=== PATIENT | female | born 1960 | race Caucasian/White ===

== ENCOUNTER 2020-08-07 07:23 | Emergency (ER) | payer BC, OTHER ==
[~2020-08-07] VITALS: Ht 165.1 cm; Wt 79.0 kg
[~2020-08-07 07:23] MED LIST: ASPI-482 PO; OMEP20TA8 PO
[2020-08-07] MEDS ORDERED: IV NORMAL SALINE 1,000ML 1,000 ML IV ONE (07:30)
[2020-08-07] MEDS ORDERED: MECLIZINE 12.5 MG TABLET. PO ONE (07:30)
[2020-08-07] MEDS ORDERED: DEXAMETHASONE SOD PHOS 10 MG/ML VIAL. IV ONE (07:35)
--- NOTE | 2020-08-07 07:43 | EKG ---
[address] [address] Test Date: 2020-08-07 Test Time: 07:37:01 Pat Name: REY MILLER Department: Room: Gender: F Client Relationship Manager: AGUILAR : 1960 Requested By: MOHIT SULLIVAN Order Number: [id number] Reading MD: Measurements Intervals [place] Rate: 84 P: 0 RI: 154 QRS: 41 QRSD: 98 T: 26 QT: 384 QTc: 457 Interpretive Statements SINUS RHYTHM NO SPECIFIC ECG ABNORMALITIES RI6.02 No previous ECG available for comparison
--- NOTE | 2020-08-07 07:46 | PHYS DOC ---
Past History Past Medical History: Diabetes Smoking: Quit Greater Than 1 Year Alcohol Use: Occasionally Drug Use: None General Adult EDM: Chief Complaint: RINGING IN EARS HPI: HPI: Patient is a 60 y/o female with a history of vertigo and diabetes who presents to the ED per EMS with dizziness and feeling warm since around 0630 today. Associated nausea, tingling in her fingers, and worsening ringing in her ears. Pt states that this feels different than her normal vertigo episodes and she has chronic tinnitus but is worse today. Denies taking any medication for symptoms. Symptoms are exacerbated with eye movement or positional changes. Denies any SOB, chest pain, recent sick contacts, or any other pain. Review of Systems: Review of Systems: Constitutional: Denies fever or chills Eyes: Denies redness or eye pain HENT: Reports dizziness with eye movement; Denies nasal congestion or sore throat Respiratory: Denies cough or shortness of breath Cardiovascular: Denies chest pain or palpitations GI: Reports nausea; Denies abdominal pain or vomiting : Denies dysuria or hematuria Musculoskeletal: Denies back pain or joint pain Integument: Denies rash or skin lesions Neurologic: Reports dizziness, tingling in fingers; Denies headache, focal weakness or sensory changes Complete systems were reviewed and found to be within normal limits, except as documented in this note. Current Medications: Current Meds: Current Medications Medications (Trade) Dose Ordered Sig/Dennis Start Time Stop Time Status Last Admin Dose Admin Dexamethasone Sodium Phosphate (Decadron) 10 mg 1X ONCE 08/07/20 07:35 08/07/20 07:36 Meclizine HCl (Antivert) 25 mg 1X ONCE 08/07/20 07:30 08/07/20 07:31 DC Sodium Chloride 1,000 ml @ 1,000 mls/hr 1X ONCE 08/07/20 07:30 08/07/20 08:29 Allergies: Allergies: Allergies Coded Allergies Type Severity Reaction Last Updated Verified No Known Drug Allergies 12/21/13 No Physical Exam: PE: Constitutional: Well developed, well nourished, no acute distress, non-toxic appearance HENT: Normocephalic, atraumatic Eyes: PERRL, EOMI, conjunctiva normal, no discharge, no nystagmus, Pt became dizzy on eye exam Neck: Normal range of motion, no tenderness, supple Lungs & Thorax: No respiratory distress, equal chest rise and fall Abdomen: Soft, no tenderness Skin: Warm, dry, no erythema, no rash Back: No tenderness, no CVA tenderness Extremities: No tenderness, ROM intact, no edema Neurologic: Alert and oriented X 3, normal motor function, normal sensory function, no focal deficits noted, CN II-XII intact, Normal [id number] test Psychologic: Affect normal, judgment normal EKG: EKG: EKG @ 0730, Sinus rhythm at 84 BPM, no ST elevation, IN 154 ms, QRS 98ms, QTc 457 ms Radiology/Procedures: Radiology/Procedures: PROCEDURE: CT HEAD WO CONTRAST CT HEAD WO CONTRAST Date: 08/07/2020 7:26 AM Clinical Indication: dizziness / Spl. Instructions: / History: Comparison: None. Technique: 5 mm axial tomographic images were obtained of the head without contrast. These were viewed on brain and bone windows. One or more of the following dose reduction techniques were utilized: Automated exposure control (AEC), Adjustment of mA and/or kV according to patient size, Use of iterative reconstruction technique such as ASiR, CT scan done according to ALARA and image gently/image wisely Findings: The brain parenchyma is normal in attenuation. No intra- or extra-axial mass or fluid collection. No acute hemorrhage. The ventricles are normal in size, shape, and morphology. The newell-white matter junction is normal. The subarachnoid cisterns are patent. The visualized paranasal sinuses are normal. The visualized portions of the orbits and globes are normal. The mastoid air cells are clear. The database programmer topogram shows no lytic lesion or fracture. Impression: No acute intracranial process. Electronically signed by: Jake Lott MD (08/07/2020 8:08 AM) [id number] Course & Med Decision Making: Course & Med Decision Making Pertinent Labs and Imaging studies reviewed. (See chart for details) Pt is a 60 y/o female who presents to the ED with worsening dizziness, tingling in fingers, and nausea. NIH score 0. CT of head negative. Pt felt improvement in the ED after medications. Labs and imaging normal. Patient stable for discharge with outpatient follow-up with PCP. Discussed findings and plan with patient, who acknowledges understanding and agreement. Ciaran Disclaimer: Ciaran Disclaimer: This electronic medical record was generated, in whole or in part, using a voice recognition dictation system. Departure Departure: Impression: Primary Impression: Vertigo Additional Impression: Tinnitus Qualified Codes: H93.11 - Tinnitus, right ear Disposition: 01 DC HOME SELF CARE/HOMELESS Condition: IMPROVED Referrals: BRYCE GUNN MD (PCP) Patient Instructions: Tinnitus, Vertigo, [id number] Additional Instructions: Follow closely with your doctor and/or ENT. Dr. Marko Smalls (ENT) Address: [address] [place] [address] [address], [place] [address] Scripts Meclizine Hcl (MECLIZINE HCL) 25 Mg Tablet 1 TAB PO TID PRN for DIZZINESS, #20 TAB Prov: MOHIT SULLIVAN DO 08/07/20 Prednisone (PREDNISONE) 20 Mg Tablet 2 TAB PO DAILY for Tinnitus, #8 TAB Start this prescriptions tomorrow, Tuesday08/08/2020 Prov: MOHIT SULLIVAN DO 08/07/20 NIHSS - ED NIH Stroke Scale: NIH Stroke Scale Response (Comments) Value Level of Consciousness: 0 Alert/Responsive 0 LOC Questions: 0 Answers both correctly 0 LOC Commands: 0 Performs both tasks 0 Best Gaze: 0 Normal 0 Visual: 0 No visual loss 0 Facial Palsy: 0 Normal, symmetrical 0 Motor - Left Arm 0 No drift 0 Motor - Right Arm 0 No drift 0 Motor - Left Leg 0 No drift 0 Motor: Right Leg 0 No drift 0 Limb Ataxia: 0 Absent 0 Sensory: 0 No loss 0 Best Language: 0 Normal 0 Dysathria: 0 Normal 0 Extinction and Inattention: 0 Normal 0 Total 0 MOHIT SULLIVAN DO Aug 07, 2020 07:46
[2020-08-07 07:55] LABS: BASO % 1 % (0-3); EOS # 0.2 x10^3/uL (0.0-0.7); EOS % 2 % (0-3); HEMATOCRIT 41.2 % (36.0-47.0); LYMPH # 3.3 x10^3/uL (1.0-4.8); LYMPH % 43 % (24-48); MEAN CORPUSCULAR HEMOGLOBIN 26 pg (25-35); MEAN CORPUSCULAR HGB CONC 32 g/dL (31-37); MEAN CORPUSCULAR VOLUME 81 fL (79-100); MONO # 0.5 x10^3/uL (0.0-1.1); MONO % 6 % (0-9); NEUT # 3.7 x10^3uL (1.8-7.7); NEUT % 48 % (31-73); PLATELET COUNT 321 x10^3/uL (140-400); RED BLOOD COUNT 5.09 x10^6/uL (3.50-5.40); RED CELL DISTRIBUTION WIDTH 14.8 % (11.5-14.5); WHITE BLOOD COUNT 7.8 x10^3/uL (4.0-11.0)
[2020-08-07 08:04] LABS: ANION GAP 13 (6-14); BLOOD UREA NITROGEN 13 mg/dL (7-20); BUN/CREATININE RATIO 16 (6-20); CALCIUM 8.9 mg/dL (8.5-10.1); CARBON DIOXIDE 23 mmol/L (21-32); CHLORIDE 104 mmol/L (98-107); CREATININE 0.8 mg/dL (0.6-1.0); GFR 73.7; GLUCOSE 142 mg/dL (70-99); POTASSIUM 3.7 mmol/L (3.5-5.1); SODIUM 140 mmol/L (136-145)
--- NOTE | 2020-08-07 08:11 | RAD ---
CT HEAD WO CONTRAST Date: 08/07/2020 7:26 AM Clinical Indication: dizziness / Spl. Instructions: / History: Comparison: None. Technique: 5 mm axial tomographic images were obtained of the head without contrast. These were viewed on brain and bone windows. One or more of the following dose reduction techniques were utilized: Automated exposure control (AEC), Adjustment of mA and/or kV according to patient size, Use of iterative reconstruction technique such as ASiR, CT scan done according to ALARA and image gently/image wisely Findings: The brain parenchyma is normal in attenuation. No intra- or extra-axial mass or fluid collection. No acute hemorrhage. The ventricles are normal in size, shape, and morphology. The newell-white matter junction is normal. The subarachnoid cisterns are patent. The visualized paranasal sinuses are normal. The visualized portions of the orbits and globes are normal. The mastoid air cells are clear. The chief clinical dietitian topogram shows no lytic lesion or fracture. Impression: No acute intracranial process. Electronically signed by: Jake Lott MD (08/07/2020 8:08 AM) [id number]
[2020-08-07 08:18] LABS: ALBUMIN 3.5 g/dL (3.4-5.0); ALBUMIN/GLOBULIN RATIO 1.1 (1.0-1.7); ALK PHOS 106 U/L (46-116); ALT (SGPT) 21 U/L (14-59); AST (SGOT) 13 U/L (15-37); MAGNESIUM 1.8 mg/dL (1.8-2.4); TOTAL BILIRUBIN 0.3 mg/dL (0.2-1.0); TOTAL PROTEIN 6.8 g/dL (6.4-8.2)
[2020-08-07] MEDS ORDERED: MECL-75 PO (10:14)
[2020-08-07] MEDS ORDERED: PRED20TA PO (10:14)
[2020-08-07 10:25] VITALS: BP 132/80
== END 2020-08-07 10:37 | disposition home or self-care (01) ==
LOC: ER 07:23
DX: R42 Dizziness and giddiness (principal); H93.11 Tinnitus, right ear; R11.0 Nausea; E11.9 Type 2 diabetes mellitus without complications; Z87.891 Personal history of nicotine dependence
CPT/HCPCS: 36415; 70450; 80053; 82553; 83735; 84484; 85025; 85610; 85730; 93005; 96361; 96374; 99285; J1100; J7030; J8597